=== PATIENT | female | born 1990 | race Two or more races ===

== ENCOUNTER 2020-02-24 11:12 | Emergency (ER) | payer MEDICAID, OTHER ==
[~2020-02-24] VITALS: Ht 157.5 cm; Wt 68.0 kg
[2020-02-24 11:16] VITALS: BP 151/94
== END 2020-02-24 12:55 | disposition home or self-care (01) ==
LOC: ER 11:12
DX: J20.9 Acute bronchitis, unspecified (principal); Z20.828 Contact with and (suspected) exposure to other viral communicable diseases; Z88.1 Allergy status to other antibiotic agents; Z88.8 Allergy status to other drugs, medicaments and biological substances
CPT/HCPCS: 36415; 71045; 87426; 87804